=== PATIENT | male | born 1980 | race Caucasian/White ===

== ENCOUNTER 2017-07-05 13:09 | Emergency (ER) | payer BC, SELFPAY ==
--- NOTE | 2017-07-05 14:21 | ER ---
Nurse's Notes [facility] Name: Donovan Pham Age: 36 yrs Sex: Male : 1980 Arrival Date: 07/05/2017 Time: 13:10 Bed 18 Private MD: Diagnosis: Hemorrhoids and perianal venous thrombosis Presentation: 07/05 13:23 Presenting complaint: Patient states: I think I have hemorrhoids. I have had pain for ch months, the past two days it hurts more and im bleeding. Transition of care: patient was not received from another setting of care. Onset of symptoms was April 2017. Initial Sepsis Screen: Does the patient meet any 2 criteria? No. Patient's initial sepsis screen is negative. Does the patient have a suspected source of infection? No. Patient's initial sepsis screen is negative. Care prior to arrival: None. 13:23 Method Of Arrival: Ambulatory 13:23 Acuity: RODOLFO 5 ch Triage Assessment: 13:25 General: Appears in no apparent distress. uncomfortable, Behavior is calm, cooperative, ch appropriate for age. Pain: Complains of pain in anus Pain currently is 9 out of 10 on a pain scale. Historical: - Allergies: 13:25 No Known Allergies; - Home Meds: 13:25 Cymbalta oral oral [Active]; Trazodone Oral [Active]; Buspirone Oral [Active]; - PMHx: 13:25 Depression; - PSHx: 13:25 L ankle tendons; Appendectomy; Hernia repair; deviated septum; - Immunization history:: Adult Immunizations up to date, Flu vaccine is not up to date. - Social history:: Smoking status: Patient/guardian denies using tobacco, Patient/guardian denies using alcohol, street drugs. Screenin:23 Abuse screen: Denies threats or abuse. Denies injuries from another. Nutritional aj1 screening: No deficits noted. Tuberculosis screening: No symptoms or risk factors identified. 15:26 Fall Risk None identified. aj1 Assessment: 15:23 General: Appears in no apparent distress. comfortable, Behavior is calm, cooperative, aj1 appropriate for age. Pain: Complains of pain in anus. Neuro: Level of Consciousness is awake, alert, obeys commands, Oriented to person, place, time, situation. Cardiovascular: Patient's skin is warm and dry. Respiratory: Airway is patent Respiratory effort is even, unlabored, Respiratory pattern is regular, symmetrical. GI: No signs and/or symptoms were reported involving the gastrointestinal system. : No signs and/or symptoms were reported regarding the genitourinary system. EENT: No signs and/or symptoms were reported regarding the EENT system. Derm: No signs and/or symptoms reported regarding the dermatologic system. Skin is pink, warm \T\ dry. normal. Musculoskeletal: No signs and/or symptoms reported regarding the musculoskeletal system. Circulation, motion, and sensation intact. Vital Signs: 13:25 BP 127 / 76; Pulse 78; Resp 18; Temp 98.3; Pulse Ox 99% on R/A; Weight 88.45 kg; Height ch 6 ft. (182.88 cm); Pain 9/10; 15:23 BP 122 / 75; Pulse 75; Resp 18; Pulse Ox 99% ; aj1 13:25 Body Mass Index 26.45 (88.45 kg, 182.88 cm) ED Course: 13:10 Patient arrived in ED. sb2 13:23 Triage completed. 13:25 Arm band placed on left wrist. Patient placed in an exam room. 13:58 Ya Ruiz FNP-C [facility]. kb 13:58 Santino Jones MD is Attending Physician. kb 15:19 Lelsy Robles, RN is Primary Nurse. aj1 15:23 Patient has correct armband on for positive identification. Bed in low position. Call aj1 light in reach. Side rails up X 1. 15:23 No provider procedures requiring assistance completed. Patient did not have IV access aj during this emergency room visit. Administered Medications: No medications were administered Outcome: 14:20 Discharge ordered by . kb 15:23 Discharged to home ambulatory. aj1 15:23 Condition: good 15:23 Discharge instructions given to patient, Instructed on discharge instructions, follow up and referral plans. medication usage, Demonstrated understanding of instructions, follow-up care, medications, Prescriptions given X 1. 15:27 Patient left the ED. aj1 Signatures: Ya Ruiz FNP-C FNP-Ckb Hammond, Christina, RN RN Lesly Robles RN RN aj1 Jayashree Fuentes sb2
--- NOTE | 2017-07-05 14:21 | EDPHYS ---
Physician Documentation [facility] Name: Donovan Pham Age: 36 yrs Sex: Male : 1980 Arrival Date: 07/05/2017 Time: 13:10 Bed 18 Private MD: ED Physician Santino Jones HPI: 07/05 14:17 This 36 yrs old Male presents to ER via Ambulatory with complaints of Rectal kb Pain. 14:17 The patient presents to the emergency department with pain in the rectal area, that is kb moderate. Onset: The symptoms/episode began/occurred 4 month(s) ago. Context: the patient has a known history of hemorrhoids. Modifying factors: The symptoms are aggravated by bowel movement, sitting position. Associate signs and symptoms: The patient has no apparent associated signs or symptoms. The patient has not experienced similar symptoms in the past. The patient has not recently seen a physician. Historical: - Allergies: 13:25 No Known Allergies; ch - Home Meds: 13:25 Cymbalta oral oral [Active]; Trazodone Oral [Active]; Buspirone Oral [Active]; ch - PMHx: 13:25 Depression; ch - PSHx: 13:25 L ankle tendons; Appendectomy; Hernia repair; deviated septum; ch - Immunization history:: Adult Immunizations up to date, Flu vaccine is not up to date. - Social history:: Smoking status: Patient/guardian denies using tobacco, Patient/guardian denies using alcohol, street drugs. ROS: 14:16 Constitutional: Negative for fever, chills, and weight loss, Cardiovascular: Negative kb for chest pain, palpitations, and edema, Respiratory: Negative for shortness of breath, cough, wheezing, and pleuritic chest pain, MS/Extremity: Negative for injury and deformity, Skin: Negative for injury, rash, and discoloration, Neuro: Negative for headache, weakness, numbness, tingling, and seizure. 14:16 Abdomen/GI: Positive for rectal pain, rectal bleeding. Exam: 14:16 Constitutional: This is a well developed, well nourished patient who is awake, alert, kb and in no acute distress. Head/Face: Normocephalic, atraumatic. Chest/axilla: Normal chest wall appearance and motion. Nontender with no deformity. No lesions are appreciated. Cardiovascular: Regular rate and rhythm with a normal S1 and S2. No gallops, murmurs, or rubs. Normal PMI, no JVD. No pulse deficits. Respiratory: Lungs have equal breath sounds bilaterally, clear to auscultation and percussion. No rales, rhonchi or wheezes noted. No increased work of breathing, no retractions or nasal flaring. Back: No spinal tenderness. No costovertebral tenderness. Full range of motion. Skin: Warm, dry with normal turgor. Normal color with no rashes, no lesions, and no evidence of cellulitis. MS/ Extremity: Pulses equal, no cyanosis. Neurovascular intact. Full, normal range of motion. Neuro: Awake and alert, GCS 15, oriented to person, place, time, and situation. Cranial nerves II-XII grossly intact. Motor strength 5/5 in all extremities. Sensory grossly intact. Cerebellar exam normal. Normal gait. 14:16 Abdomen/GI: Inspection: abdomen appears normal, Bowel sounds: normal, in all quadrants, Palpation: abdomen is soft and non-tender, in all quadrants, Rectal exam: hemorrhoid(s), external, with pain, without bleeding, without inflammation, without thrombosis. Vital Signs: 13:25 BP 127 / 76; Pulse 78; Resp 18; Temp 98.3; Pulse Ox 99% on R/A; Weight 88.45 kg; Height ch 6 ft. (182.88 cm); Pain 9/10; 15:23 BP 122 / 75; Pulse 75; Resp 18; Pulse Ox 99% ; aj1 13:25 Body Mass Index 26.45 (88.45 kg, 182.88 cm) MDM: 14:01 Patient medically screened. kb 14:16 Data reviewed: vital signs, nurses notes. Data interpreted: Pulse oximetry: on room air kb is 99 %. Interpretation: normal. Counseling: I had a detailed discussion with the patient and/or guardian regarding: the historical points, exam findings, and any diagnostic results supporting the discharge/admit diagnosis, the need for outpatient follow up, a family practitioner, a general surgeon, a environmental resource specialist, to return to the emergency department if symptoms worsen or persist or if there are any questions or concerns that arise at home. Administered Medications: No medications were administered Disposition: 22:32 Co-signature as Attending Physician, Santino Jones MD I agree with the assessment and kdr plan of care. Disposition: 07/05/17 14:20 Discharged to Home. Impression: Hemorrhoids and perianal venous thrombosis. - Condition is Stable. - Discharge Instructions: Hemorrhoids, [id number]. - Prescriptions for Anusol- HC 2.5 % Rectal Cream - Apply to affected area 1 application by TOPICAL route every 8 hours As needed; 30 gram. - Medication Reconciliation Form, Thank You Letter, Antibiotic Education, Prescription Opioid Use, Work release form form. - Follow up: Emergency Department; When: As needed; Reason: Worsening of condition. Follow up: Private Physician; When: 2 - 3 days; Reason: Recheck today's complaints, Continuance of care, Re-evaluation by your physician. Signatures: Ya Ruiz, TECHNOLOGY ARCHITECT-C TECHNOLOGY ARCHITECT-Faina Valles, RN RN ch Lesly Robles RN RN aj1 Santino Jones MD MD kdr Corrections: (The following items were deleted from the chart) 15:27 14:20 07/05/2017 14:20 Discharged to Home. Impression: Hemorrhoids and perianal venous aj1 thrombosis. Condition is Stable. Forms are Medication Reconciliation Form, Thank You Letter, Antibiotic Education, Prescription Opioid Use. Follow up: Emergency Department; When: As needed; Reason: Worsening of condition. Follow up: Private Physician; When: 2 - 3 days; Reason: Recheck today's complaints, Continuance of care, Re-evaluation by your physician. kb
[2017-07-05 15:31] VITALS: TEMP 98.3; O2SAT 99
[2017-07-05 15:32] VITALS: BP 122/75
== END 2017-07-05 15:27 | disposition home or self-care (01) ==
LOC: ER 13:09
DX: K64.5 Perianal venous thrombosis (principal); K64.9 Unspecified hemorrhoids; F32.9 Major depressive disorder, single episode, unspecified
CPT/HCPCS: 99282

== ENCOUNTER 2018-07-21 04:27 | Emergency (ER) | payer SELFPAY ==
[2018-07-21] MEDS ORDERED: TRAMADOL HCL 50 MG TAB ONE (05:13)
[2018-07-21] MEDS ORDERED: LIDOCAINE 1% MPF 30 ML VIAL ONE (05:13)
[2018-07-21] MEDS ORDERED: KETOROLAC 30 MG/ML INJ ONE (06:00)
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
[2018-07-21 07:01] VITALS: TEMP 98.1
[2018-07-21 07:02] VITALS: BP 121/78; O2SAT 100
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
== END 2018-07-21 06:47 | disposition home or self-care (01) ==
LOC: ER 04:27
PROC: 0JQ10ZZ Repair Face Subcutaneous Tissue and Fascia, Open Approach (ICD-10-PCS; principal; 2018-07-21)
PROC: 0JQ00ZZ Repair Scalp Subcutaneous Tissue and Fascia, Open Approach (ICD-10-PCS; 2018-07-21)
DX: S01.81XA Laceration without foreign body of other part of head, initial encounter (principal); S01.01XA Laceration without foreign body of scalp, initial encounter; S19.9XXA Unspecified injury of neck, initial encounter; Y04.0XXA Assault by unarmed brawl or fight, initial encounter; S02.2XXD Fracture of nasal bones, subsequent encounter for fracture with routine healing; Z72.0 Tobacco use; F32.9 Major depressive disorder, single episode, unspecified; F41.9 Anxiety disorder, unspecified
CPT/HCPCS: 70450; 70486; 72125; 76377; 96372; 99284